=== PATIENT | female | born 1970 | race African-American/Black ===

== ENCOUNTER 2017-12-25 10:34 | Observation (INO) ==
[2017-12-25] MEDS ORDERED: PANTOPRAZOLE 40 MG VIAL IV STA (11:10)
[2017-12-25] MEDS ORDERED: ONDANSETRON ODT 4 MG TABLET PO STA (11:10)
[2017-12-25] MEDS ORDERED: SODIUM CHLORIDE 0.9% 500 ML IV STA (11:10)
[2017-12-25 11:43] LABS: Basophils # 0.1 10*3/uL (0.0-0.2); Basophils % 0.5 % (0.0-0.8); Eosinophils % 0.2 % (0.00-10.9); Hematocrit 39.4 VOL% (35.7-47.0); Hemoglobin 12.9 GM/DL (12.0-16.0); Immature Granulocytes % 0.3 %; Immature Granulocytes Absolute 0.04 #; Lymphocytes % 23.2 % (21.3-54.2); Mean Corpuscular HGB Conc 32.7 GM/DL (32-36); Mean Corpuscular Hemoglobin 29 PG (27-34); Mean Corpuscular Volume 87.9 FL (87-102); Mean Platelet Volume 10.3 FL (9.6-12.0); Monocytes # 0.8 10*3/uL (0.11-0.8); Monocytes % 6.5 % (1.7-12.7); Neutrophils # 8.9 10*3/uL (1.4-7.4); Neutrophils % 69.3 % (38.7-73.9); Platelet Count 271 T/CUMM (130-400); Red Blood Count 4.48 MC/CUMM (3.8-5.5); Red Cell Distribution Width 12.7 % (9.3-17.3); White Blood Count 12.8 T/CUMM (4-12)
[2017-12-25 12:06] LABS: Alanine Aminotransferase 20 U/L (13-56); Albumin 3.5 G/DL (3.4-5.0); Alkaline Phosphatase 107 U/L (45-117); Aspartate Amino Transferase 23 U/L (0-37); Bilirubin,Total < 0.39 MG/DL (0.2-1.0); Blood Urea Nitrogen 16 MG/DL (7-18); Calcium 8.8 MG/DL (8.5-10.1); Glucose 78 MG/DL (74-106); Osmolality,Calculated 276.5 MOS/KG (273-304); Sodium 139 MMOL/L (136-145); Total Protein 7.9 G/DL (6.4-8.3); Troponin I Only < 0.015 NG/ML (0.00-0.045)
[2017-12-25] MEDS ORDERED: HYDROmorphone 2 MG/1 ML VIAL IV STA (14:58)
[2017-12-25] MEDS ORDERED: ONDANSETRON 4 MG/2 ML VIAL IV STA (14:58)
[2017-12-25] MEDS ORDERED: AMPICILLIN/SULBACTAM 3,000 MG in SODIUM CHLORIDE 0.9% 100 ML IV STA (15:00)
[2017-12-25] MEDS ORDERED: ONDANSETRON 4 MG/2 ML VIAL ONE (15:09)
[2017-12-25] MEDS ORDERED: PANTOPRAZOLE 40 MG VIAL IV ONE (15:09)
[2017-12-25] MEDS ORDERED: HYDROmorphone 2 MG/1 ML VIAL ONE (15:10)
[2017-12-25] MEDS ORDERED: AMPICILLIN/SULBACTAM 3,000 MG VIAL ONE (15:19)
[2017-12-25] MEDS ORDERED: ACETAMINOPHEN 325 MG TABLET PO PRN (17:33)
[2017-12-25] MEDS ORDERED: MORPHINE 4 MG/1 ML VIAL IV PRN (17:33)
[2017-12-25] MEDS ORDERED: ONDANSETRON 4 MG/2 ML VIAL IV PRN (17:33)
[2017-12-25] MEDS: LACTATED RINGERS 1,000 ML IV SCH (18:50)
[2017-12-25] MEDS: PIPERACILLIN/TAZOBACTAM 3,375 MG in SODIUM CHLORIDE 0.9% 100 ML IV SCH (18:50)
[2017-12-25] MEDS: PYRIDOSTIGMINE 60 MG TABLET PO SCH (20:22)
[2017-12-25] MEDS: predniSONE 20 MG TABLET PO SCH (20:22)
[2017-12-25 23:32] LABS: Apearance,Urine CLEAR (Clear); Bilirubin,Urine Negative (Negative); Blood, Urine Negative (Negative); Glucose,Urine (UA) Negative (Negative); Ketones,Urine 5 mg/dL (Negative); Mucus,Urine Occasional /LPF (Occasional); Nitrite,Urine Negative (Negative); Protein,Urine Negative; RBC,Urine 1 /HPF (0-4); Squamous Epithelial Cell,Urine Occasional /HPF (0-10); Urine Color Yellow (Yellow); Urine Specific Gravity 1.021 (1.001-1.035); Urine Urobilinogen < 2.0 EU/DL (0.2-1.0); WBC,Urine 1 /HPF (0-6)
[2017-12-26] MEDS: PIPERACILLIN/TAZOBACTAM 3,375 MG in SODIUM CHLORIDE 0.9% 100 ML IV SCH ×3 (01:11→18:11)
[2017-12-26] MEDS: LACTATED RINGERS 1,000 ML IV SCH ×4 (01:12→16:42)
[2017-12-26 07:44] LABS: Basophils % 0.2 % (0.0-0.8); Hematocrit 35.9 VOL% (35.7-47.0); Immature Granulocytes % 0.5 %; Immature Granulocytes Absolute 0.04 #; Lymphocytes # 0.9 10*3/uL (1.4-4.0); Lymphocytes % 10.2 % (21.3-54.2); Mean Corpuscular HGB Conc 33.4 GM/DL (32-36); Mean Corpuscular Hemoglobin 29 PG (27-34); Mean Corpuscular Volume 87.1 FL (87-102); Mean Platelet Volume 10.4 FL (9.6-12.0); Monocytes # 0.2 10*3/uL (0.11-0.8); Monocytes % 1.9 % (1.7-12.7); Neutrophils # 7.6 10*3/uL (1.4-7.4); Neutrophils % 87.2 % (38.7-73.9); Platelet Count 265 T/CUMM (130-400); Red Blood Count 4.12 MC/CUMM (3.8-5.5); Red Cell Distribution Width 12.8 % (9.3-17.3); White Blood Count 8.8 T/CUMM (4-12)
[2017-12-26 08:16] LABS: Albumin 3.1 G/DL (3.4-5.0); Bilirubin,Total 0.4 MG/DL (0.2-1.0); Calcium 8.6 MG/DL (8.5-10.1); Osmolality,Calculated 282.3 MOS/KG (273-304); Potassium 4.2 MMOL/L (3.5-5.1); Total Protein 6.3 G/DL (6.4-8.3)
[2017-12-26] MEDS ORDERED: ENOXAPARIN 40 MG/0.4 ML SYRINGE SUBCUT SCH (09:00)
[2017-12-26] MEDS: PYRIDOSTIGMINE 60 MG TABLET PO SCH ×5 (09:40→20:30)
[2017-12-26] MEDS: PANTOPRAZOLE 40 MG TABLET PO SCH (09:40)
[2017-12-26] MEDS ORDERED: LIDOCAINE 1%/EPI INJ 20 ML VIAL ONE (11:13)
[2017-12-26] MEDS ORDERED: TISSUE ADHESIVE 1 EACH APPLICATOR TOP ONE (11:13)
[2017-12-26] MEDS ORDERED: BUPIVACAINE MPF 0.25% /EPI 30 ML VIAL ONE (11:13)
[2017-12-26] MEDS: MORPHINE 10 MG/1 ML VIAL IV PRN ×2 (14:20→14:33)
[2017-12-26] MEDS ORDERED: SEVOFLURANE 1 UNIT/15 MINUTE INH ONE (14:22)
[2017-12-26] MEDS ORDERED: PROPOFOL 200 MG/20 ML VIAL IV ONE (14:22)
[2017-12-26] MEDS ORDERED: MIDAZOLAM 2 MG/2 ML VIAL ONE (14:23)
[2017-12-26] MEDS ORDERED: PHENYLEPHRINE 10 MG/1 ML VIAL IV ONE (14:23)
[2017-12-26] MEDS ORDERED: fentaNYL 100 MCG/2 ML VIAL ONE (14:23)
[2017-12-26] MEDS ORDERED: ONDANSETRON 4 MG/2 ML VIAL ONE ×2 (14:23→14:27)
[2017-12-26] MEDS ORDERED: HYDROCORTISONE 100 MG VIAL ONE (14:23)
[2017-12-26] MEDS ORDERED: ACETAMINOPHEN 1,000 MG/100 ML VIAL IV ONE (14:23)
[2017-12-26] MEDS ORDERED: MORPHINE 10 MG/1 ML VIAL ONE (14:26)
[2017-12-26] MEDS ORDERED: ONDANSETRON 4 MG/2 ML VIAL IV PRN (14:30)
[2017-12-26] MEDS ORDERED: diphenhydrAMINE 50 MG/1 ML VIAL ONE (14:37)
[2017-12-26] MEDS ORDERED: diphenhydrAMINE 50 MG/1 ML VIAL IV ONE (14:40)
[2017-12-27] MEDS: PIPERACILLIN/TAZOBACTAM 3,375 MG in SODIUM CHLORIDE 0.9% 100 ML IV SCH ×2 (01:19→10:05)
[2017-12-27] MEDS: PANTOPRAZOLE 40 MG TABLET PO SCH (10:03)
[2017-12-27] MEDS: predniSONE 20 MG TABLET PO SCH (10:03)
[2017-12-27] MEDS: PYRIDOSTIGMINE 60 MG TABLET PO SCH (10:03)
[2017-12-27 10:58] VITALS: BP 105/65
== END 2017-12-27 15:05 | disposition home or self-care (01) ==
LOC: N.ED 10:34 → N.EDINP 10:34 → N.3E 17:25
PROVIDERS: ADMIT Surgery; ATTEND Surgery
PROC: LAPCHOL (2017-12-26 12:55)